=== PATIENT | male | born 1965 | race Caucasian/White ===

== ENCOUNTER 2017-08-26 09:25 | Emergency (ER) | payer BC ==
[2017-08-26] MEDS: HYDROCODONE/APAP (5/325) TAB PO (10:32)
== END 2017-08-26 11:53 | disposition home or self-care (01) ==
LOC: FTE 09:25
DX: J32.9 Chronic sinusitis, unspecified (principal); M54.10 Radiculopathy, site unspecified; R42 Dizziness and giddiness
CPT/HCPCS: 70450; 93005; 99284-25

== ENCOUNTER 2018-04-12 11:58 | Day surgery (SDC) | payer BC ==
[2018-04-12] MEDS ORDERED: MIDAZOLAM 1 MG/ML 2 ML INJ ×2 (14:06)
[2018-04-12] MEDS ORDERED: FENTAnyl 50 MCG/ML VIAL (14:06)
== END 2018-04-12 17:14 | disposition home or self-care (01) ==
LOC: GIL 11:58
DX: Z12.11 Encounter for screening for malignant neoplasm of colon (principal); K57.30 Diverticulosis of large intestine without perforation or abscess without bleeding; K64.8 Other hemorrhoids; E78.00 Pure hypercholesterolemia, unspecified
CPT/HCPCS: 45378